=== PATIENT | male | born 1990 | race Caucasian/White ===

== ENCOUNTER 2017-01-15 10:23 | Emergency (ER) | payer OTHER | END 2017-01-15 11:02 | disposition home or self-care (01) | LOC: ER1 10:23 | DX: L98.9 Disorder of the skin and subcutaneous tissue, unspecified (principal) | CPT/HCPCS: 99283 ==

== ENCOUNTER 2017-04-06 10:15 | Inpatient (IN) | payer OTHER ==
[~2017-04-06] VITALS: Ht 182.9 cm; Wt 98.0 kg
[2017-04-06 11:13] LABS: HEMOGLOBIN 15.2 gm/dl (14.0-17.5); WHITE BLOOD COUNT 13.7 K/UL (4.5-11.0)
[2017-04-06 11:34] LABS: BUN/CREATININE RATIO 17 (0-10)
[2017-04-07 06:52] LABS: HEMOGLOBIN 15.5 gm/dl (14.0-17.5); RED BLOOD COUNT 4.96 M/UL (4.20-5.50)
[2017-04-07 06:54] LABS: WHITE BLOOD COUNT 9.9 K/UL (4.5-11.0)
[2017-04-07 07:06] LABS: BUN/CREATININE RATIO 22 (0-10)
[2017-04-09 05:35] LABS: BUN/CREATININE RATIO 15 (0-10)
[2017-04-10] MEDS ORDERED: BACTRIM DS TAB1 EACH PO (12:13)
== END 2017-04-10 13:33 | disposition home or self-care (01) | DRG 580 ==
LOC: ER1 10:15 → ZEROF 12:36 → M/S 12:36
PROVIDERS: Emergency Medicine; ADMIT Orthopaedic Surgery
PROC: 0J9K0ZZ Drainage of Left Hand Subcutaneous Tissue and Fascia, Open Approach (ICD-10-PCS; principal; 2017-04-07 16:00)
DX: L03.012 Cellulitis of left finger (principal); L02.512 Cutaneous abscess of left hand; B95.62 Methicillin resistant Staphylococcus aureus infection as the cause of diseases classified elsewhere; Z88.1 Allergy status to other antibiotic agents
CPT/HCPCS: 36415; 73130; 80048; 80053; 80202; 83605; 85025; 85027; 87040; 87070; 87077; 87186; 87205; 96365; 96366; 99284; J2250; J2270; J3010; J3370; J7070; J7120